=== PATIENT | male | born 1985 | race African-American/Black ===

== ENCOUNTER 2018-10-26 07:41 | Emergency (ER) | payer OTHER ==
[~2018-10-26] VITALS: Ht 175.3 cm; Wt 125.0 kg
[2018-10-26 07:46] VITALS: BP 138/83; PULSE 97; RESP 20; Ht 175.3 cm; Wt 125.0 kg
[2018-10-26] MEDS ORDERED: SOD CHLORIDE 0.9% 1,000 ML IV STA (08:32)
[2018-10-26] MEDS ORDERED: ONDANSETRON 4 MG INJ IV STA (08:32)
[2018-10-26] MEDS ORDERED: KETOROLAC 30 MG INJ IV STA (08:32)
[2018-10-26] MEDS ORDERED: ACETAMINOPHEN 325 MG TAB PO ONE (09:00)
[2018-10-26] MEDS ORDERED: ACET500C5 PO (12:20)
[2018-10-26] MEDS ORDERED: IBUP-1542 PO (12:20)
[2018-10-26] MEDS ORDERED: BENZ-6 PO (12:20)
[2018-10-26] MEDS ORDERED: ONDA4TAB14 PO (12:26)
--- NOTE | 2018-10-26 12:26 | ERD ---
ER Documentation Chief Complaint Chief Complaint Complains of a fever x 2 weeks HPI 32-year-old male patient with past medical history of lupus and sciatica presents to the ED complaining of fever that started intermittently for 2 weeks. States that he has increased thirst, cough, rhinorrhea, increased thirst, and 3 episodes of nonbilious nonbloody vomiting. Denies any chest pain, shortness of breath, wheezing, abdominal pain. Patient also reports that he is concerned about HIV, because his partner had HIV, 6 months ago. Patient reports that he is not taking any medications for Lupus currently. ROS All systems reviewed and are negative except as per history of present illness. Medications Home Meds Active Scripts Ondansetron (Ondansetron Odt) 4 Mg Tab.rapdis, 4 MG PO Q6H PRN for NAUSEA AND/OR VOMITING, #10 TAB Prov:MARK HOOVER-C 10/26/18 Acetaminophen* (Tylophen*) 500 Mg Capsule, 1 CAP PO Q6H PRN for PAIN AND OR ELEVATED TEMP, #20 CAP Prov:MARK HOOVER-C 10/26/18 Ibuprofen* (Motrin*) 600 Mg Tab, 600 MG PO Q6, #30 TAB Prov:MARK HOOVER-C 10/26/18 Benzonatate* (Tessalon Perle*) 100 Mg Capsule, 100 MG PO Q8H PRN for COUGH, #20 CAP Prov:MARK HOOVER PA-C 10/26/18 Allergies Allergies: Uncoded Allergies: PCN (Allergy, Intermediate, 11/18/14) PMhx/Soc Hx Neurological Disorder: Yes (Lupus) Hx Alcohol Use: No Hx Substance Use: No Hx Tobacco Use: No Smoking Status: Never smoker FmHx Family History: No diabetes, No coronary disease Physical Exam Vitals Vital Signs Date Temp Pulse Resp B/P (MAP) Pulse Ox O2 O2 Flow FiO2 Time Delivery Rate 10/26/18 98.0 10:17 10/26/18 101.4 97 20 138/83 100 07:46 (101) Physical Exam Const: [id number], well-nourished. In no acute distress. Head: Atraumatic, normocephalic Eyes: Normal Conjunctiva without injection. No purulent discharge. PERRLA. EOMI ENT: Normal external ear. Ear canal without erythema. Tympanic membrane pearly rosa without effusion or bulging. Nasal canal clear with normal turbinates. Moist oropharynx without tonsillar exudates. Non-erythematous pharynx. Uvula midline. No drooling. No trismus. Neck: No cervical midline tenderness. Full range of motion. No meningismus. No cervical lymphadenopathy. No JVD. Resp: Clear to auscultation bilaterally. No wheezing, rhonchi, rales, or crackles. No accessory muscle use. No retractions. Cardio: Regular rate and rhythm. No murmurs, rubs or gallops. Abd: Soft, non tender, non distended. Normal bowel sounds. No palpable masses. No rebound tenderness. No guarding. Negative McBurney's Point. Negative Jenkins's Sign. Skin: Normal skin turgor. No petechiae or rashes Back: No midline tenderness. No CVA tenderness. Ext: No cyanosis, or edema. Distal pulses intact bilaterally. Neur: Awake and alert. Normal gait. Normal coordination. Cranial Nerves II- VII intact. Normal finger to nose. Muscle strength 5/5. Sensation intact. Psych: Normal Mood and Affect Results 24 hrs Laboratory Tests Test 10/26/18 08:45 10/26/18 12:13 White Blood Count 5.5 10^3/ul Red Blood Count 4.82 10^6/ul Hemoglobin 13.0 g/dl Hematocrit 39.5 % Mean Corpuscular Volume 82.0 fl Mean Corpuscular Hemoglobin 27.0 pg Mean Corpuscular Hemoglobin Concent 32.9 g/dl Red Cell Distribution Width 14.3 % Platelet Count 251 10^3/UL Mean Platelet Volume 9.0 fl Immature Granulocytes % 0.500 % Neutrophils % 73.1 % Lymphocytes % 12.9 % Monocytes % 12.6 % Eosinophils % 0.7 % Basophils % 0.2 % Nucleated Red Blood Cells % 0.0 /100WBC Immature Granulocytes # 0.030 10^3/ul Neutrophils # 4.0 10^3/ul Lymphocytes # 0.7 10^3/ul Monocytes # 0.7 10^3/ul Eosinophils # 0.0 10^3/ul Basophils # 0.0 10^3/ul Nucleated Red Blood Cells # 0.0 10^3/ul Urine Color YELLOW Urine Clarity CLEAR Urine pH 6.0 Urine Specific [place] 1.020 Urine Ketones 1+ mg/dL Urine Nitrite NEGATIVE mg/dL Urine Bilirubin NEGATIVE mg/dL Urine Urobilinogen 2+ mg/dL Urine Leukocyte Esterase NEGATIVE [place]/ul Urine Microscopic RBC 5 /HPF Urine Microscopic WBC 1 /HPF Urine Hemoglobin 1+ mg/dL Urine Glucose NEGATIVE mg/dL Urine Total Protein 2+ mg/dl Sodium Level 137 mmol/L Potassium Level 4.0 mmol/L Chloride Level 104 mmol/L Carbon Dioxide Level 23 mmol/L Anion Gap 10 Blood Urea Nitrogen 10 mg/dl Creatinine 0.88 mg/dl Est Glomerular Filtrat Rate mL/min > 60 mL/min Glucose Level 103 mg/dl Calcium Level 8.9 mg/dl Total Bilirubin 0.3 mg/dl Direct Bilirubin 0.00 mg/dl Indirect Bilirubin 0.3 mg/dl Aspartate Amino Transf (AST/SGOT) 34 IU/L Alanine Aminotransferase (ALT/SGPT) 38 IU/L Alkaline Phosphatase 97 IU/L Total Protein 7.4 g/dl Albumin 3.4 g/dl Globulin 4.00 g/dl Albumin/Globulin Ratio 0.85 Lipase 54 U/L HIV (1&2) Antibody NEGATIVE Monoscreen Negative Current Medications Medications Dose Sig/Casi Start Time Status Last (Trade) Ordered Route PRN Stop Time Admin Dose Reason Admin Sodium 1,000 ml @ Q1H STAT 10/26/18 DC 10/26/18 Chloride 1,000 mls/hr IV 08:32 08:41 10/26/18 09:31 Ondansetron 4 mg ONCE STAT 10/26/18 DC 10/26/18 HCl (Zofran IV 08:32 08:41 Inj) 10/26/18 08:34 Ketorolac 30 mg ONCE STAT 10/26/18 DC 10/26/18 Tromethamine IV 08:32 08:41 (Toradol) 10/26/18 08:34 650 mg ONCE ONCE 10/26/18 DC 10/26/18 Acetaminophen PO 09:00 08:40 (Tylenol 10/26/18 09:01 Tab) Procedures/MDM 32-year-old male patient with no significant past medical history presents to ED complaining of fever, cough, rhinorrhea, concern for HIV. Discussed with patient HIV PEP prophylaxis, however patient did not want medication at this time. Patient was further worked up with CBC, CMP, lipase, UA, CXR, monospot, influenza. Patient's pain and symptoms have improved after treatment with 1 L normal saline, 30 mg IV toradol. CBC: No leukocytosis. No e/o of systemic infection. No e/o anemia. CMP: No e/o severe acidosis, alkalosis, renal failure, diabetic ketoacidosis, liver disease Lipase within normal limits. Urine: No leukocyte esterase, no nitrites, no hematuria. HIV negative. Monospot negative Febrile illness likely viral symptomatology. Low suspicion for testicular torsion, gastritis, GERD, peptic ulcer disease, cholecystitis, choledocholithiasis, cholangitis, pancreatitis, appendicitis, bowel obstruction, ileus, volvulus, nephrolithiasis, pyelonephritis, hepatitis, perforated viscus, diverticulitis, abdominal hernia, acute abdomen, mesenteric ischemia or other emergent conditions. Low suspicion for acute myocardial infarction, pneumothorax, pericarditis, myocarditis, endocarditis, pneumonia, cardiac tamponade, pulmonary embolism, pleural effusion, AAA, aortic dissection, Boerhaave's syndrome, cardiac dysrhythmias,meningitis, intracranial bleed, seizure, stroke, TIA or other emergent conditions. Discussed with Dr. Licona, who agreed with the management discharge plan. Diagnosis: Fever Discharge medications: Zofran, Tylenol, Ibuprofen, Tessalon Perles Follow up with primary care physician in 1-2 days for a referral to see a rn anesthesiology for management of his Lupus. Instructed patient to return to the ED sooner for any worsening symptoms. Patient's questions were answered. Patient is hemodynamically stable. Patient understood and agreed with discharge plan. Patient discharged stable. Disclaimer: Inadvertent spelling and grammatical errors are likely due to EHR/dictation software use and do not reflect on the overall quality of patient care. Also, please note that the electronic time recorded on this note does not necessarily reflect the actual time of the patient encounter. Departure Diagnosis: Primary Impression: Fever Fever type: unspecified Qualified Codes: R50.9 - Fever, unspecified Condition: Stable Patient Instructions: If You Think You Have an STD, Bronchitis, No Antibiotic (Adult), Febrile Illness, Uncertain Cause (Adult), Fever Control (Adult), Smoking Cessation Referrals: COMMUNITY CLINICS YOU HAVE RECEIVED A MEDICAL SCREENING EXAM AND THE RESULTS INDICATE THAT YOU DO NOT HAVE A CONDITION THAT REQUIRES URGENT TREATMENT IN THE EMERGENCY DEPARTMENT. FURTHER EVALUATION AND TREATMENT OF YOUR CONDITION CAN WAIT UNTIL YOU ARE SEEN IN YOUR DOCTORS OFFICE WITHIN THE NEXT 1-2 DAYS. IT IS YOUR RESPONSIBILITY TO MAKE AN APPOINTMENT FOR FOLOW-UP CARE. IF YOU HAVE A PRIMARY DOCTOR --you should call your primary doctor and schedule an appointment IF YOU DO NOT HAVE A PRIMARY DOCTOR YOU CAN CALL OUR PHYSICIAN REFERRAL HOTLINE AT IF YOU CAN NOT AFFORD TO SEE A PHYSICIAN YOU CAN CHOSE FROM THE FOLLOWING [facility] [address] [facility] [address] [facility] [address] [facility] [address] [facility] [address] [facility]. [facility] [address] [facility] YOU HAVE RECEIVED A MEDICAL SCREENING EXAM AND THE RESULTS INDICATE THAT YOU DO NOT HAVE A CONDITION THAT REQUIRES URGENT TREATMENT IN THE EMERGENCY DEPARTMENT. FURTHER EVALUATION AND TREATMENT OF YOUR CONDITION CAN WAIT UNTIL YOU ARE SEEN IN YOUR DOCTORS OFFICE WITHIN THE NEXT 1-2 DAYS. IT IS YOUR RESPONSIBILITY TO MAKE AN APPOINTMENT FOR FOLOW-UP CARE. IF YOU HAVE A PRIMARY DOCTOR --you should call your primary doctor and schedule and appointment IF YOU DO NOT HAVE A PRIMARY DOCTOR YOU CAN CALL OUR PHYSICIAN REFERRAL HOTLINE AT . IF YOU CAN NOT AFFORD TO SEE A PHYSICIAN YOU CAN CHOSE FROM THE FOLLOWING [facility] INSTITUTIONS: [facility] [address] [place] [address] [facility] [address] [place] [address] [facility] [address] [place] [address] [facility] Hours: 8:00 am - 5:00 pm Additional Instructions: Call your primary care doctor TOMORROW for an appointment during the next 2-3 days for full STD panel testing and follow up and care of your Lupus.See the doctor sooner or return here if your condition worsens before your appointment time. MARK HOOVER PA-C Oct 26, 2018 12:26
== END 2018-10-26 12:42 | disposition home or self-care (01) ==
LOC: FTE 07:41
DX: R50.9 Fever, unspecified (principal)
CPT/HCPCS: 36415; 71045; 80053; 81001; 83690; 85025; 86308; 86703; 87400; 96374; 96375; 99284; J1885; J2405; J7030